=== PATIENT | female | born 1935 | race Caucasian/White ===

== ENCOUNTER 2020-02-23 17:04 | Emergency (ER) | payer MEDICARE, BC, SELFPAY ==
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
[2020-02-23 17:14] VITALS: BP 138/93; PULSE 117; RESP 14; TEMP 36.2; O2SAT 99
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
[2020-02-23] MEDS: BACITRACIN OINTMENT 15 GM TUBE 1 APPLIC (19:25)
[2020-02-23] MEDS: oxyCODONE/ACETAMINOPHEN (*CRX) 5-325 MG TABLET 1 TABLET PO (19:34)
[2020-02-23 21:15] VITALS: BP 132/89; PULSE 82; RESP 18; O2SAT 97
== END 2020-02-23 21:18 | disposition home or self-care (01) ==
PROVIDERS: Emergency Provider Emergency Medicine; PCP Family Medicine
DX: T59.811A Toxic effect of smoke, accidental (unintentional), initial encounter (principal); T20.16XA Burn of first degree of forehead and cheek, initial encounter; T23.161A Burn of first degree of back of right hand, initial encounter; T31.0 Burns involving less than 10% of body surface; X02.1XXA Exposure to smoke in controlled fire in building or structure, initial encounter
CPT/HCPCS: 16000; 71045; 99283; A9270

== ENCOUNTER 2020-12-16 13:04 | Emergency (ER) | payer MEDICARE, BC, SELFPAY ==
--- NOTE | ~2020-12-16 | XR_ITS ---
EXAMINATION: XR chest 2V DATE: 12/16/2020 13:41 INDICATION: Cough and congestion TECHNIQUE: Frontal and lateral views of the chest are obtained COMPARISON: 02/23/2020 FINDINGS: The lungs are free of acute opacities. There is no pleural effusion or pneumothorax. The ca rdiomediastinal silhouette is normal. There is moderate thoracic spondylosis. IMPRESSION: 1. No acute cardiopulmonary abnormality. Reviewed, dictated and finalized at location B.
[2020-12-16 13:15] VITALS: BP 125/88; PULSE 95; RESP 18; TEMP 36.8; O2SAT 96
--- NOTE | 2020-12-16 13:33 | ED.URI ---
HPI - URI/Sore Throat General Chief Complaint: Upper Respiratory Infection Stated Complaint: Congestion,Cough Time Seen by Provider: 12/16/20 13:20 Source: patient and RN notes reviewed Mode of arrival: ambulatory Limitations: no limitations History of Present Illness HPI Narrative: Patient presents today complaining of a 4+ day history of cough, congestion, postnasal drip, sneezing, shortness of breath with exertion. Denies sore throat or fever. She has been taking Tylenol, DayQuil, NyQuil with some relief. Denies history of asthma or COPD. She is a non-smoker. MD elicited complaint: cough and nasal congestion Related Data Home Medications Medication Instructions Recorded Confirmed metformin 1,000 mg DAILY 12/16/20 12/16/20 Allergies Allergy/AdvReac Type Severity Reaction Status Date / Time Penicillins Allergy Unknown Verified 07/08/10 11:31 Review of Systems Review of Systems: CONSTITUTIONAL: Denies body aches, fever, chills, or sweats. EYES: Denies visual changes, redness, or discharge. ENT: Denies rhinorrhea, sore throat, or otalgia.+ Congestion, postnasal drip, sneezing CARDIOVASCULAR: Denies chest pain, palpitations, or edema. RESPIRATORY: + Cough, shortness of breath with exertion GASTROINTESTINAL: Denies abdominal pain, nausea, vomiting, or diarrhea. GENITOURINARY: Denies dysuria or hematuria. SKIN: Denies rash, itching, or wounds. MUSCULOSKELETAL: Denies back pain, joint pain, or myalgia. NEUROLOGIC: Denies headache, numbness, tingling, or weakness. PSYCH: Denies depression or anxiety. [facility] Past Medical History Medical History (Updated 12/16/20 @ 14:08 by Tanvi Carrasco, [employer], ) Diabetes Family History Family History Father Family history of diabetes mellitus in first degree relative Mother Family history of heart disease in male family member before age 55 Social History Social History Smoking status: Never smoker Alcohol intake: never Comments At time of signature, I have reviewed and agree with nursing past medical, surgical, social and family history unless otherwise noted. Please see nursing chart for further information. There is no relevant family history pertinent to the presenting complaint Exam Narrative: GENERAL: Well-appearing, well-nourished, and in no acute distress. HEAD: Normocephalic, atraumatic. EYES: EOMI. No redness or drainage. Conjunctivae normal. ENT: Mucous membranes pink and moist. Nares congested. No rhinorrhea. TMs normal bilaterally. Throat normal. Uvula midline. NECK: Normal AROM. Supple. No lymphadenopathy. CHEST: No respiratory distress. Diminished in the left base, otherwise clear HEART: Regular rate and rhythm. No murmur appreciated. Normal peripheral pulses. EXTREMITIES: Normal range of motion. No edema. SKIN: Warm, dry, no rash. Capillary refill normal. Normal skin turgor. NEURO: No focal deficits. Alert and oriented x3. Gait steady. PSYCH: Normal affect. No signs of depression or anxiety. Course Vital Signs Vital signs: Vital Signs Temperature 98.3 F 12/16/20 13:15 Pulse Rate 95 12/16/20 13:15 Respiratory Rate 18 12/16/20 13:15 Blood Pressure 125/88 12/16/20 13:15 Pulse Oximetry 96 12/16/20 13:15 Temperature 98.3 F 12/16/20 13:15 Pulse Rate 95 12/16/20 13:15 Respiratory Rate 18 12/16/20 13:15 Blood Pressure 125/88 12/16/20 13:15 Pulse Oximetry 96 12/16/20 13:15 Reviewed. Pt has been instructed to follow up with her PCP regarding her elevated blood pressure today. MDM - URI/Sore Throat Differential Diagnosis Differential diagnosis: Likely upper respiratory infection, sinusitis, viral infection, bronchitis and other (Pneumonia) Imaging Data Radiologist's impression: ITS Impressions Chest X-Ray 12/16/20 13:49 IMPRESSION: 1. No acute cardiopulmonary abnormalit
== END 2020-12-16 14:12 | disposition home or self-care (01) ==
PROVIDERS: Emergency Provider Nurse Practitioner; PCP Family Medicine
DX: J40 Bronchitis, not specified as acute or chronic (principal); J06.9 Acute upper respiratory infection, unspecified; E11.9 Type 2 diabetes mellitus without complications
CPT/HCPCS: 71046; 99213; G0463

== ENCOUNTER → 2021-10-12 12:14 | Outpatient (CLI) | payer MEDICARE, BC, SELFPAY ==
--- NOTE | ~2021-10-12 | DEXA_ITS ---
Bone Density Report Name: TRACEY MARTINEZ Age: 85 Sex: Female Ethnicity: White Date of : 1935 Indication: postmenopausal; screening for osteoporosis; height loss; hysterectomy; Referring Provider: GERALD MUJICA Study: Bone densitometry was performed. Exam Date: October 12, 2021 Accession number: [id number] Bone Density: Region BMD T-score Z-score Classification AP Spine (L1-L4) 1.076 0.3 3.1 Normal Femoral Neck (Left) 0.702 -1.3 1.2 Osteopenia Total Hip (Left) 0.860 -0.7 1.7 Normal Femoral Neck (Right) 0.734 -1.0 1.5 Normal Total Hip (Right) 0.845 -0.8 1.5 Normal Total Hip Mean 0.853 -0.8 1.6 Normal World Health Organization criteria for BMD impression classify patients as: Normal (T-score at or above -1.0), Osteopenia (T-score between -1.0 and -2.5), or Osteoporosis (T-score at or below -2.5). 10-year Fracture Risk(1): Major Osteoporotic Fracture 11% Hip Fracture 2.6% Reported Risk Factors: [place] (), Neck BMD=0.702, BMI=41.2 (1) FRAX(R) Version 3.08. Fracture probability calculated for an untreated patient. Fracture probability may be lower if the patient has received treatment. Previous Exams: Region Exam Age BMD T-score BMD Change BMD Change Date g/cm2 vs Baseline vs Previous AP Spine(L1-L4) 10/12/2021 85 1.076 0.3 0.024* 0.024* 08/13/2006 70 1.052 0.0 Total Hip(Left) 10/12/2021 85 0.860 -0.7 -0.026 -0.026 08/13/2006 70 0.887 -0.5 Total Hip(Right) 10/12/2021 85 0.845 -0.8 -0.072* -0.072* 08/13/2006 70 0.917 -0.2 *Denotes significance at 95% confidence level, LSC for AP Spine = 0.022 g/cm2, LSC for Total Hip = 0.027 g/cm2 Clinical Information Provided by Patient: Has the following medical conditions: Hysterectomy Patient maximum height was 66.5 Menopause Age: 57 No regular weight bearing exercise Does not regularly consume dairy products Onset of menses at age 13 Number of children 4 Missed period for more than 6 months in a row Impression: The patient has low bone mass, based on the Left Femoral Neck T-score. The patient has an estimated ten-year risk of hip fracture of 2.6% and an estimated ten-year risk of major fracture of 11%, based on the WHO FRAX algorithm. The BMD for the Total Hip(Right) decreased, changing by -0.072 since the last DXA exam. Discussion: BONE DENSITY IS LOW AT ONE OR MORE SKELETAL SITES. This patient's lowest
== END ==
DX: Z78.0 Asymptomatic menopausal state (principal); M85.852 Other specified disorders of bone density and structure, left thigh
CPT/HCPCS: 77080

== ENCOUNTER 2022-02-17 08:55 | Outpatient (CLI) | payer MEDICARE, BC, SELFPAY ==
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
== END 2022-02-17 08:56 | disposition home or self-care (01) ==
DX: M25.551 Pain in right hip (principal)
CPT/HCPCS: 73502

== ENCOUNTER 2022-06-29 13:36 | Outpatient (CLI) | payer MEDICARE, BC, SELFPAY ==
--- NOTE | ~2022-06-29 | XR_ITS ---
Lumbosacral Spine: AP, oblique, and lateral views Clinical History: Pain Findings: The normal lordotic curve is maintained. No fracture seen. Probable minimal grade 1 retroli sthesis of L2 over L3. There is moderate degenerative disc narrowing at L2-L3. There is mild degenera tive disc narrowing at remaining lumbar levels. There is moderate facet arthropathy from L3 through S 1. The sacroiliac joints are normally outlined. Impression: Mild to moderate degenerative spondylosis, as above. Minimal grade 1 retrolisthesis of L2 over L3. Reviewed, dictated and finalized at location M. Impression: Mild to moderate degenerative spondylosis, as above. Minimal grade 1 retrolisthesis of L2 over L3.
== END 2022-06-29 13:37 | disposition home or self-care (01) ==
LOC: ANHIMG 13:39
DX: M47.896 Other spondylosis, lumbar region (principal)
CPT/HCPCS: 72110